=== PATIENT | female | born 1950 | race Caucasian/White ===

== ENCOUNTER → 2023-09-11 13:06 | Outpatient (REF) | payer MEDICARE, SELFPAY | LOC: WDC 13:06 | PROVIDERS: ATTENDING PHYSICIAN Obstetrics & Gynecology; FAMILY PHYSICIAN Family Medicine | DX: Z12.31 Encounter for screening mammogram for malignant neoplasm of breast (principal); Z13.820 Encounter for screening for osteoporosis; Z78.0 Asymptomatic menopausal state | CPT/HCPCS: 77063; 77067; 77080 ==

== ENCOUNTER → 2023-10-15 08:36 | Outpatient (REF) | payer MEDICARE, SELFPAY ==
[2023-10-15 09:46] LABS: ALT (SGPT) 14 U/L (0-35); AST (SGOT) 19 U/L (14-36); Albumin 3.9 g/dl (3.5-5.0); Alkaline Phosphatase 60 U/L (38-126); Blood Urea Nitrogen 14 mg/dl (7-17); Calcium 8.8 mg/dl (8.4-10.2); Carbon Dioxide 29 mmol/L (22-30); Chloride 101 mmol/L (98-107); Glucose 103 mg/dl (70-99); HDL Cholesterol 70 mg/dl; LDL Cholesterol, Calculated 164 mg/dl; Potassium 4.4 mmol/L (3.5-5.1); Sodium 138 mmol/L (135-145); Total Bilirubin 0.3 mg/dl (0.2-1.3); Total Cholesterol 252 mg/dl (50-199); Total Protein 6.7 g/dl (6.3-8.2); Triglyceride 93 mg/dl (10-149); Very Low Density Lipoprotein 18 mg/dl (0-30); eGFR > 60.00
== END ==
LOC: REG 08:36
PROVIDERS: ATTENDING PHYSICIAN Internal Medicine Cardiovascular Disease; FAMILY PHYSICIAN Family Medicine
DX: E78.2 Mixed hyperlipidemia (principal); I10 Essential (primary) hypertension; I77.9 Disorder of arteries and arterioles, unspecified
CPT/HCPCS: 36415; 80053; 80061

== ENCOUNTER → 2024-05-05 07:37 | Outpatient (REF) | payer MEDICARE, SELFPAY ==
[2024-05-05 11:18] LABS: HDL Cholesterol 70 mg/dl; LDL Cholesterol, Calculated 87 mg/dl; Total Cholesterol 175 mg/dl (50-199); Triglyceride 94 mg/dl (10-149); Very Low Density Lipoprotein 18 mg/dl (0-30)
== END ==
LOC: RAD 07:37
PROVIDERS: ATTENDING PHYSICIAN Internal Medicine; FAMILY PHYSICIAN Family Medicine; REFERRING PHYSICIAN Internal Medicine Cardiovascular Disease
DX: I10 Essential (primary) hypertension (principal); E26.9 Hyperaldosteronism, unspecified; E27.8 Other specified disorders of adrenal gland; E78.2 Mixed hyperlipidemia
CPT/HCPCS: 36415; 71275; 80061; Q9967

== ENCOUNTER → 2024-05-20 10:16 | Outpatient (REF) | payer MEDICARE, SELFPAY | LOC: RAD 10:16 | PROVIDERS: ATTENDING PHYSICIAN Physician Assistant; FAMILY PHYSICIAN Family Medicine | DX: D35.00 Benign neoplasm of unspecified adrenal gland (principal); E04.2 Nontoxic multinodular goiter; E27.9 Disorder of adrenal gland, unspecified | CPT/HCPCS: 74170; 76536; Q9967 ==

== ENCOUNTER → 2024-10-03 14:28 | Outpatient (REF) | payer MEDICARE, SELFPAY | LOC: WDC 14:28 | PROVIDERS: ATTENDING PHYSICIAN Obstetrics & Gynecology; FAMILY PHYSICIAN Family Medicine | DX: Z12.31 Encounter for screening mammogram for malignant neoplasm of breast (principal) | CPT/HCPCS: 77063; 77067 ==

== ENCOUNTER → 2025-05-26 13:41 | Outpatient (REF) | payer MEDICARE, SELFPAY | LOC: RAD 13:41 | PROVIDERS: ATTENDING PHYSICIAN Physician Assistant; FAMILY PHYSICIAN Family Medicine | DX: D35.01 Benign neoplasm of right adrenal gland (principal); E27.9 Disorder of adrenal gland, unspecified; E04.2 Nontoxic multinodular goiter | CPT/HCPCS: 74170; 76536; Q9967 ==